=== PATIENT | male | born 1960 | race Caucasian/White ===

== ENCOUNTER → 2020-01-06 10:39 | Outpatient (CLI) | payer OTHER, SELFPAY ==
--- NOTE | ~2020-01-06 | MR_ITS ---
EXAMINATION: MR brain/brain stem wo/w con DATE: 01/06/2020 11:58 CDT INDICATION: Dizziness and giddiness TECHNIQUE: Magnetic resonance imaging (MRI) of the brain and brainstem was performed without and with 20 cc MultiHance intravenous contrast. Sequences included sagittal and axial T1-weighted SE, axial d iffusion-weighted FS SE, axial T2*-weighted GRE, axial T2-weighted FLAIR Propeller, and axial T2-weig hted Propeller. Apparent diffusion coefficient (ADC) maps were created. COMPARISON: No prior studies for comparison FINDINGS: The brain volume and ventricular system are within normal limits. The brain parenchymal si gnal intensity pattern and patterson/white matter is normal and there is no evidence of hemorrhage, space occupying masses or infarctions. The flow signal voids of the major arterial structures about the lower [place] and within the julio r dural venous sinuses appear grossly unremarkable and patent. The seventh and eighth cranial nerve complexes are normal. The mid sagittal image demonstrates a normal craniovertebral junction and kee us callosum. There is mild mucosal thickening of the left maxillary sinus. No abnormal contrast enhancement was appreciated. IMPRESSION: 1: No acute intracranial abnormality. 2: Mild left maxillary sinus disease. Reviewed, dictated and finalized at location A.
[2020-01-06 11:10] LABS: Estimated Glomerular Filt Rate > 60
== END ==
PROVIDERS: Visit Provider Family Medicine
DX: R42 Dizziness and giddiness (principal); J32.0 Chronic maxillary sinusitis
CPT/HCPCS: 36415; 70553; A9577

== ENCOUNTER 2025-08-30 13:30 | Outpatient (CLI) | payer OTHER, SELFPAY ==
--- NOTE | ~2025-08-30 | PE_ITS ---
EXAMINATION: PET_PETPSMAST_PT DATE: 08/30/2025 15:58 INDICATION: Prostate cancer TECHNIQUE: 5.308 mCi of Illucix Ga-68([id number]) was administered i.v. Low dose computed tomography (CT) images were acquired from the base of the brain to the base of the brain to the proximal thighs for attenuation correction and anatomic localization. Positron emission tomography (PET) images were acquired in the same distribution beginning 69 minutes after injection. Images including fused PET/CT images were reconstructed in axial, coronal, and sagittal planes. Automated exposure control technique was employed. The dose-length product was 1313.04mGy-cm. COMPARISON: None FINDINGS: Head/neck: Typical pattern of symmetric physiologic increased activity in the lacrimal, parotid and submandibular glands as well as along the mucosa of the nasal and oral cavities, pharynx and hypopharynx. No pathologically enlarged cervical lymphadenopathy or suspicious foci of increased uptake in the visualized head or neck. Chest: Respiratory motion in both lungs. No suspicious pulmonary nodules, pneumonia, pulmonary edema or pleural effusion. Mild cardiomegaly. Atherosclerotic coronary artery calcific lesions and change of prior median sternotomy and coronary artery bypass grafting. Thoracic aorta is normal in caliber. No pathologically enlarged or PSMA avid thoracic lymphadenopathy. Abdomen/pelvis/proximal thighs: Physiologic renal accumulation and excretion of activity in the kidneys, bladder and along portions of ureters. Prostatomegaly measuring 5.3 x 5.1 cm. There is mild heterogeneous activity in the prostate with maximal SUV of 4.4 consistent with primary prostate cancer Normal degree and slightly heterogenous pattern of increased uptake throughout the liver and spleen without radiologic correlate or dominant PSMA avid lesion. The gallbladder, pancreas and bilateral adrenal glands are normal. Moderate uptake scattered throughout the bowels with typical duodenal and proximal jejunal predominance and without radiologic correlate, also likely physiologic. Mild scattered diverticulosis with sigmoid and jhoana cending colon predominance without adjacent from trace stranding to suggest diverticulitis. Normal appendix. No other abnormal foci of increased uptake or pathologically enlarged lymphadenopathy in the abdomen, pelvis or proximal thighs. Musculoskeletal: Mild cervical, moderate thoracic and severe lumbar spondylosis. No suspicious lytic, blastic or abnormally PSMA avid bone lesions. IMPRESSION: 1. Prostatomegaly with mild heterogeneous increased activity with maximal SUV of 4.4 likely related to reported primary prostate cancer. No evident metastatic disease. Reviewed, dictated and finalized at location A. L [employer] IMPRESSION: 1. Prostatomegaly with mild heterogeneous increased activity with maximal SUV o f 4.4 likely related to reported primary prostate cancer. No evident metastatic disease.
== END 2025-08-30 13:31 | disposition home or self-care (01) ==
PROVIDERS: PCP Family Medicine; Visit Provider Urology
DX: C61 Malignant neoplasm of prostate (principal)
CPT/HCPCS: 78815; A9596